=== PATIENT | female | born 1960 | race Caucasian/White ===

== ENCOUNTER → 2024-04-03 11:37 | Outpatient (REF) | payer BC, SELFPAY | LOC: HWWDC 11:37 | PROVIDERS: ATTENDING PHYSICIAN Family Medicine | DX: Z12.31 Encounter for screening mammogram for malignant neoplasm of breast (principal) | CPT/HCPCS: 77063; 77067 ==

== ENCOUNTER 2025-01-19 08:39 | Outpatient (RCR) | payer MEDICARE, BC, SELFPAY | END 2025-01-19 23:59 | disposition home or self-care (01) | LOC: RPT 08:39 | PROVIDERS: ATTENDING PHYSICIAN Family Medicine | DX: M25.511 Pain in right shoulder (principal); M62.838 Other muscle spasm; M79.621 Pain in right upper arm; Z73.6 Limitation of activities due to disability | CPT/HCPCS: 97110; 97162 ==

== ENCOUNTER → 2025-01-28 11:06 | Outpatient (REF) | payer MEDICARE, SELFPAY | LOC: MRI 3T 11:06 | PROVIDERS: ATTENDING PHYSICIAN Family Medicine | DX: M25.511 Pain in right shoulder (principal); M62.838 Other muscle spasm; M79.621 Pain in right upper arm; Z98.890 Other specified postprocedural states | CPT/HCPCS: 73221 ==

== ENCOUNTER 2025-03-07 06:32 | Outpatient (RCR) | payer MEDICARE, SELFPAY | END 2025-03-07 23:59 | disposition home or self-care (01) | LOC: RPT 06:32 | PROVIDERS: ATTENDING PHYSICIAN Specialist; FAMILY PHYSICIAN Family Medicine | DX: M75.111 Incomplete rotator cuff tear or rupture of right shoulder, not specified as traumatic (principal); M25.811 Other specified joint disorders, right shoulder; Z73.6 Limitation of activities due to disability; M62.81 Muscle weakness (generalized); M54.2 Cervicalgia | CPT/HCPCS: 97110; 97161 ==